=== PATIENT | male | born 1975 | race Caucasian/White ===

== ENCOUNTER 2020-11-24 07:27 | Emergency (ER) | payer OTHER ==
[~2020-11-24] VITALS: Ht 177.8 cm; Wt 99.8 kg
[~2020-11-24 07:27] MED LIST: CATAPRES 0.1MG0.1 MG PO; HYDROCODON-ACE1 EAC1 PO; HYDROXYZINE HCL25 MG PO; NEURONTIN300 MG PO; PROTONIX40 MG PO; RISPERIDONE0.5 MG PO; SIMVASTATIN20 MG PO; TRAZODONE HCL100 MG PO
[2020-11-24] MEDS ORDERED: ZITHROMAX250 MG PO (18:07)
[2020-11-24] MEDS ORDERED: MEDROL4 MG PO (18:07)
[2020-11-24] MEDS ORDERED: VENTOLIN HFA 66.7 GM INH (18:07)
[2020-11-24] MEDS ORDERED: TESSALON PERLE100 MG PO (18:07)
== END 2020-11-24 11:55 | disposition home or self-care (01) ==
LOC: ER1 07:27
DX: Z23 Encounter for immunization (principal); U07.1 COVID-19; J12.82 Pneumonia due to coronavirus disease 2019

== ENCOUNTER 2020-11-24 15:49 | Emergency (ER) | payer OTHER ==
[2020-11-24 16:49] LABS: HEMOGLOBIN 15.3 gm/dl (14.0-17.5); RED BLOOD COUNT 4.99 M/UL (4.20-5.50); WHITE BLOOD COUNT 7.8 K/UL (4.5-11.0)
[2020-11-24 17:20] LABS: BUN/CREATININE RATIO 13 (0-10)
[2020-11-24] MEDS ORDERED: VENTOLIN HFA 66.7 GM INH (18:07)
[2020-11-24] MEDS ORDERED: TESSALON PERLE100 MG PO (18:07)
[2020-11-24] MEDS ORDERED: MEDROL4 MG PO (18:07)
[2020-11-24] MEDS ORDERED: ZITHROMAX250 MG PO (18:07)
== END 2020-11-24 19:00 | disposition home or self-care (01) ==
LOC: ER1 15:49
PROVIDERS: Preventive Medicine Occupational Medicine
DX: U07.1 COVID-19 (principal)
CPT/HCPCS: 71045; 80053; 82550; 82553; 82803; 83605; 83690; 83874; 84484; 85025; 85652; 86140; 87040; 94664; 96365; 96366; 96375; 99283; 99284; J0456; J1100; J7030; M0243

== ENCOUNTER → 2021-02-09 | Outpatient (CLI) | payer OTHER ==
[~2021-02-09] MED LIST changes: +MEDROL4 MG PO; +TESSALON PERLE100 MG PO; +VENTOLIN HFA 66.7 GM INH; +ZITHROMAX250 MG PO
== END ==
LOC: NM 01-14 13:00
DX: R10.11 Right upper quadrant pain (principal)
CPT/HCPCS: 78226; A9537

== ENCOUNTER → 2021-03-17 | Outpatient (CLI) | payer OTHER | LOC: NM 14:20 | DX: R11.0 Nausea (principal) | CPT/HCPCS: 78264; A9541 ==

== ENCOUNTER → 2021-07-08 | Outpatient (CLI) | payer OTHER | LOC: NM 07:43 | DX: R06.02 Shortness of breath (principal) | CPT/HCPCS: ECHO; 78452; 93017; 93306; A9502 ==

== ENCOUNTER → 2021-10-18 | Outpatient (CLI) | payer OTHER | LOC: KOH-I 10:52 | DX: J32.9 Chronic sinusitis, unspecified (principal) | CPT/HCPCS: 70486 ==